=== PATIENT | female | born 1960 | race Caucasian/White ===

== ENCOUNTER 2021-07-24 15:59 | Emergency (ER) | payer OTHER ==
[2021-07-24] MEDS ORDERED: TETANUS AND DIPHTHERIA TOXOID 0.5 ML DISP.SYRIN IM ONE (17:00)
[2021-07-24] MEDS ORDERED: DIPHTH,PERTUSS(ACELL),TET 0.5 ML DISP.SYRIN IM ONE (17:05)
[2021-07-24] MEDS ORDERED: LIDOCAINE 1%/EPI 1:100000 (20 ML MULTI DOSE VIAL) INF ONE (17:05)
[2021-07-24 17:11] VITALS: BP 148/93; PULSE 71; TEMP 98.1; BMI 42.5
== END 2021-07-24 17:58 | disposition home or self-care (01) ==
LOC: JER 15:59
PROC: 3E0234Z Introduction of Serum, Toxoid and Vaccine into Muscle, Percutaneous Approach (ICD-10-PCS; principal; 2021-07-24)
DX: I83.892 Varicose veins of left lower extremity with other complications (principal)
CPT/HCPCS: 90471; 90715; 99282-25

== ENCOUNTER 2021-07-31 12:50 | Emergency (ER) | payer OTHER ==
[2021-07-31 12:55] VITALS: BP 138/82; PULSE 64; TEMP 98.1; BMI 42.5
== END 2021-07-31 13:59 | disposition home or self-care (01) ==
LOC: JERFT 12:50 → JER 12:50 → JERFT 13:59
DX: S81.812A Laceration without foreign body, left lower leg, initial encounter (principal); Y99.9 Unspecified external cause status; Z48.02 Encounter for removal of sutures
CPT/HCPCS: 99281-25

== ENCOUNTER 2023-12-28 21:50 | Emergency (ER) | payer OTHER ==
[2023-12-28 22:09] VITALS: RESP 18; TEMP 98.6; BMI 46.7
[2023-12-28 23:33] VITALS: BP 154/82; PULSE 70
[2023-12-29 00:01] LABS: BASO % 1.1 % (0-2.0); EOS % 2.1 % (0-4.5); HEMOGLOBIN 14.5 GM/dL (10.7-15.3); LYMPH % 21.7 % (8-40); MCH 29.1 pg (25.7-33.7); MCHC 33.8 g/dl (32.0-36.0); MEAN CELL VOLUME 86.1 fl (80-96); MEAN PLT VOLUME 8.4 fl (7.5-11.1); MONO % 9.1 % (3.8-10.2); PLATELET COUNT 237 10^3/uL (134-434); RBC 4.99 M/mm3 (3.60-5.2); RDW 12.7 % (11.6-15.6); WHITE BLOOD COUNT 8.6 K/mm3 (4.0-10.0)
[2023-12-29 00:19] LABS: POTASSIUM 3.6 mmol/L (3.5-5.1)
[2023-12-29 00:21] LABS: CALCIUM 9.3 mg/dL (8.5-10.1)
[2023-12-29 00:22] LABS: ALBUMIN 3.6 g/dl (3.4-5.0); BLOOD UREA NITROGEN 19.2 mg/dL (7-18)
[2023-12-29 00:25] LABS: CREATININE 0.8 mg/dL (0.55-1.3)
[2023-12-29 00:26] LABS: BILIRUBIN,TOTAL 0.4 mg/dL (0.2-1)
[2023-12-29 00:27] LABS: TOT PROT 7.2 g/dl (6.4-8.2)
[2023-12-29 01:00] LABS: INR 1.03 (0.83-1.09); PROTHROMBIN TIME (PATIENT) 11.8 SEC (9.7-13.0)
[2023-12-29 01:02] LABS: ACTIVATED PTT 35.2 SECONDS (25.2-36.5)
== END 2023-12-29 02:39 | disposition home or self-care (01) ==
LOC: JER 21:50
DX: I10 Essential (primary) hypertension (principal); R06.02 Shortness of breath; R00.2 Palpitations; M62.81 Muscle weakness (generalized); R51.9 Headache, unspecified; Z20.822 Contact with and (suspected) exposure to COVID-19
CPT/HCPCS: 0241U-QW; 36415; 71046-TC-FY; 80053; 84484; 85025; 85610; 85730; 93005; 93010; 99285-25